=== PATIENT | female | born 1970 | race Caucasian/White ===

== ENCOUNTER 2017-07-20 15:00 | Emergency (ER) | payer BC ==
--- NOTE | 2017-07-20 15:55 | ERNOTE ---
Date of Service: 07/20/17 Time Seen by Provider: 07/20/17 15:43 Stated Complaint: COUGHING UP BLOOD Presenting Symptoms:: cough, other - Hemoptysis Source: patient, RN notes reviewed Exam Limitations: no limitations Immunizations: IMMUNIZATION HX Immunizations Up to Date Yes History of Influenza Vaccine Yes Allergies/Adverse Reactions: Allergies No Known Allergies Allergy (Unverified 07/20/17 15:14) Home Medications: HOME MEDICATIONS Promethazine HCl/Codeine [Prometh-Codein 6.25-10 mg/5 ml] 5 ml PO Q4H PRN #120 ml 07/20/17 [Last Taken Unknown] - History of Present Ilness Narrative: 47 year old female ambulatory to the ED for hemoptysis. She reports coughing up a small amount of blood 2 days ago, and then again once yesterday and today. She states that her chest feels tight. She has chronic sinusitis and was recently on Levaquin. She has started having sinus pressure and congestion again in the past few days. She has no prior history of hemoptysis. 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 Frequency/Possible Cause: Reports: unknown cause Prior Treatment: Reports: recently seen, treated by physician. Denies: currently on antibiotics Review of Systems - Review of Systems Constitutional: Present: recent illness, fatigue, malaise EYE: Absent: eye pain, eye discharge ENT: Present: ear pain, nose congestion, nasal drainage, sore throat. Absent: ear discharge, throat swelling Respiratory: Present: shortness of breath, cough. Absent: wheezing, stridor Cardiology: Absent: chest pain, palpitations, syncope Gastrointestinal/Abdominal: Present: nausea. Absent: vomiting, abdominal pain Genitourinary: Present: no symptoms reported Musculoskeletal: Absent: muscle pain, neck pain Skin: Absent: rash, lesions Neurological: Present: headache, dizziness/light-headedness Endocrine: Present: no symptoms reported Hematologic/Lymphatic: Present: no symptoms reported Psych: Present: no symptoms reported - Patient's Past Medical History Patient History - Medical: Migraines, UTI'S Patient History - Cardiac/Respiratory: Asthma Patient History - Cancer: Skin Patient History - Surgical Procedures: ENT - Cleft palate repair Patient History - Other: None LMP (females 10-50): other - 2 weeks - Social History Living Situations: home Abuse History: No History of abuse Psych History: No pertinent hx Smoking Status: Never smoker Alcohol Use: none Drug Use: none - Immunizations Immunizations Up to Date: Yes History of Influenza Vaccine: Yes Physical Exam - Physical Exam General Appearance: Present: wd/wn, alert, no apparent distress Eye Exam: Normal inspection: bilateral Ears, Nose, Throat: Present: nasal congestion, sinus pain/drainage, pharyngeal erythema. Absent: abnormal TM (R), abnormal TM (L), pharyngeal swelling Neck: Present: normal inspection, nontender, supple Respiratory: Present: no respiratory distress, normal breath sounds, no accessory muscle use, chest nontender, lungs clear Cardiovascular/Chest: Present: regular rate, rhythm, no murmur, normal peripheral pulses Extremity Exam: Present: normal inspection, normal range of motion, no edema Neurological Exam: Present: alert, oriented, normal mood/affect, no motor/ sensory deficits Skin Exam: Present: normal color, warm/dry ED Progress - Results and Orders Patient's Lab Results:: I have reviewed the patient's lab results. - Vital Signs Patient's Vital Signs:: I have reviewed the patient's vital signs. Vital Signs: Vital Signs 07/20/17 15:05 Temperature 36.8 C Pulse Rate 109 H Respiratory 18 Rate Blood Pressure 148/109 O2 Sat by Pulse 99 Oximetry - EKG EKG: NSR EKG read: Reviewed by me - X-Ray X-Ray #1 X-Ray: chest Interpretation: Interp. by me X-ray Comments: No acute cardiopulmonary process noted - Progress/Reassessment Chief Complaint: Upper Respiratory Symptoms Progress:: Unchanged Plan - Plan Plan: Labs, EKG and CXR and unremarkable. Etiology of cough is likely viral with airway inflammation causing the hemoptysis. She believes that she has sinus pain and congestion d/t chronic sinusitis - it may currently be worse as part of the illness but I do not see any evidence that it is a bacterial sinusitis - particularly since she has been on Levaquin in the past month. The congestion may be d/t her chronic use of oral decongestants - recommended stopping this for now. Departure Clinical Impression: Cough with hemoptysis - Departure Disposition: Home Follow Up Needed Condition: Stable Instructions: Hemoptysis, [id number] Additional Instructions: Increase fluid intake Stop nasal decongestant for now - you can use saline spray instead as needed Follow up with your PCP if symptoms worsen or are not improving in 1 week Referrals: Nichole Zaman ARNP [Primary Care Provider] - Prescriptions: Promethazine HCl/Codeine [Prometh-Codein 6.25-10 mg/5 ml] 5 ml PO Q4H PRN #120 ml PRN Reason: Cough
[2017-07-20 16:09] LABS: Hemoglobin 13.4 gm/dL (12.5-16.0); Mean Cell Volume 87.1 fl (78-100); Mean Corpuscular Hemoglobin 29.2 pg (27-31); Mean Corpuscular Hgb Conc 33.5 g/dl (32-36); Mean Platelet Volume 8.5 fl (6.0-9.5); Neutrophil # 2.9 K/mm3 (1.3-6.0); Neutrophil % 52.2 % (42-75.0); Platelet Count 347 K/mm3 (150-450); Red Blood Count 4.59 M/mm3 (4.2-5.4); Red Cell Distribution Width 13.3 % (11.5-14.0); White Blood Count 5.5 K/mm3 (4.0-10.5)
[2017-07-20 16:19] VITALS: BP 149/101
[2017-07-20 16:21] LABS: INR 0.93 INR (0.90-1.10); Partial Thrombolplastin Time 25.7 Seconds (24-32); Prothrombin Time (Patient) 9.3 Seconds (9.0-11.0)
[2017-07-20 16:23] LABS: Albumin * 3.6 gm/dl (3.4-5.0); BUN/Creatinine Ratio 21.5 (9.0-21.6); Bilirubin, Total 0.5 mg/dL (0.0-1.1); Ca. Corrected For Albumin 8.5 mg/dL (8.4-10.2); Calcium * 8.5 mg/dL (7.9-10.9); Carbon Dioxide 25.4 mmol/L (24-32.6); Potassium 3.4 mmol/L (3.4-4.6); Total Protein 7.4 gm/dL (6.2-8.2)
== END 2017-07-20 16:47 | disposition home or self-care (01) ==
LOC: ER 15:00
DX: R04.2 Hemoptysis (principal); Z87.440 Personal history of urinary (tract) infections; Z85.828 Personal history of other malignant neoplasm of skin; Z87.730 Personal history of (corrected) cleft lip and palate